=== PATIENT | female | born 1980 | race Caucasian/White ===

== ENCOUNTER → 2018-10-16 | Outpatient (CLI) | payer BC, OTHER ==
--- NOTE | 2018-10-17 07:53 | REP ---
Left knee five views: Mineralization and joint spaces are normal. There is no fracture or dislocation. There are no calcifications or foreign bodies. There is questionably a joint effusion. Impression: Questionable joint effusion. Otherwise, negative left knee. Electronically Signed by Laron Isabel MD 10/16/2018 04:17 P
== END ==
LOC: M WUC 16:03
PROVIDERS: ATTEND Physician Assistant
DX: S83.412A Sprain of medial collateral ligament of left knee, initial encounter (principal)